=== PATIENT | female | born 1990 | race Caucasian/White ===

== ENCOUNTER 2020-12-10 16:15 | Emergency (ER) | payer OTHER ==
[~2020-12-10] VITALS: Ht 147.3 cm; Wt 62.3 kg
[2020-12-10 16:26] VITALS: BP 136/98
[2020-12-10] MEDS ORDERED: DEXAMETHASONE 4 MG/ML, 1ML PO ONE (16:30)
--- NOTE | 2020-12-10 16:53 | NUR ---
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
[2020-12-10] MEDS ORDERED: DEXAMETHASONE 4 MG/ML, 1ML ONE (17:46)
== END 2020-12-10 18:44 | disposition home or self-care (01) ==
LOC: ED 18:22
DX: U07.1 COVID-19 (principal); B34.9 Viral infection, unspecified
CPT/HCPCS: 71045; 99284; J1100; U0003; U0005